=== PATIENT | female | born 1940 | race Caucasian/White ===

== ENCOUNTER 2022-10-06 14:54 | Emergency (ER) | payer OTHER ==
[2022-10-06 15:11] VITALS: BP 182/53; PULSE 61; RESP 18; TEMP 98.6; BMI 29.2
== END 2022-10-06 17:13 | disposition home or self-care (01) ==
LOC: FER 14:54
DX: S09.90XA Unspecified injury of head, initial encounter (principal); W01.0XXA Fall on same level from slipping, tripping and stumbling without subsequent striking against object, initial encounter
CPT/HCPCS: 70450-TC; 72125-TC; 99284-25